=== PATIENT | female | born 1990 | race Caucasian/White ===

== ENCOUNTER → 2021-04-27 10:57 | Outpatient (BNVA) | payer SELFPAY | PROVIDERS: PCP Nurse Practitioner Family; Visit Provider Nurse Practitioner | DX: R39.9 Unspecified symptoms and signs involving the genitourinary system (principal); R52 Pain, unspecified | CPT/HCPCS: 81000; 87400 ==

== ENCOUNTER → 2021-11-03 16:00 | Outpatient (BNVA) | payer MEDICAID, SELFPAY | PROVIDERS: PCP Nurse Practitioner Family; Visit Provider Nurse Practitioner | DX: L98.9 Disorder of the skin and subcutaneous tissue, unspecified (principal) | CPT/HCPCS: 88304 ==

== ENCOUNTER → 2022-01-19 14:06 | Outpatient (BNVA) | payer BC, SELFPAY | PROVIDERS: PCP Nurse Practitioner Family; Visit Provider Nurse Practitioner | DX: Z92.89 Personal history of other medical treatment (principal); E66.9 Obesity, unspecified | CPT/HCPCS: 71046 ==

== ENCOUNTER → 2022-04-04 08:33 | Outpatient (BNVA) | payer SELFPAY | PROVIDERS: PCP Nurse Practitioner Family; Referring Provider Dermatology; Visit Provider Dermatology | DX: Z01.89 Encounter for other specified special examinations (principal) ==

== ENCOUNTER 2022-07-26 12:08 | Outpatient (CLI) | payer BC, MEDICAID, SELFPAY ==
[2022-07-26 13:31] LABS: Basophils # 0.1 10^3/uL (0.0-0.1); Basophils % 1.2 %; Eosinophils # 0.2 10^3/uL (0.0-0.8); Eosinophils % 3.7 %; Lymphocytes # 1.7 10^3/uL (0.8-4.8); Lymphocytes % 30.2 %; Mean Corpuscular HGB Conc 31.4 g/dL (30.0-36.0); Mean Corpuscular Hemoglobin 26.2 pg (28.0-34.0); Mean Corpuscular Volume 83.3 fl (81-99); Mean Platelet Volume 8.6 fL (7.4-10.4); Monocytes # 0.4 10^3/uL (0.2-0.9); Monocytes % 7.2 %; Neutrophils # 3.27 10^3/uL (1.8-7.7); Neutrophils % 57.7 %; Nucleated Red Blood Cells % 0 %; Platelet Count 477 10^3/cmm (130-400); Red Cell Distribution Width 12.4 % (12.1-15.1); White Blood Count 5.7 10^3/uL (4.0-10.0)
[2022-07-26 13:35] LABS: Thyroid Stimulating Hormone 1.21 uIU/mL (0.27-4.20)
[2022-08-01 12:00] LABS: Factor Viii, Activity 105 % normal (50-180); Partial Thromboplastin Time, A 26 sec (23-32); Von Willebrand Factor (Rcf) 72 % normal (42-200); Von Willebrand Factor Ag 109 % (50-217)
== END 2022-07-26 12:09 | disposition home or self-care (01) ==
PROVIDERS: PCP Nurse Practitioner Family; Visit Provider Nurse Practitioner Women's Health
DX: N93.9 Abnormal uterine and vaginal bleeding, unspecified (principal)
CPT/HCPCS: 36415; 84443; 85025; 85240; 85245; 85246

== ENCOUNTER → 2022-08-16 07:50 | Outpatient (BNVA) | payer BC, MEDICAID, SELFPAY | PROVIDERS: PCP Nurse Practitioner Family; Visit Provider Nurse Practitioner Women's Health | DX: N93.9 Abnormal uterine and vaginal bleeding, unspecified (principal); N83.02 Follicular cyst of left ovary; N83.01 Follicular cyst of right ovary | CPT/HCPCS: 76830 ==

== ENCOUNTER 2022-10-26 16:50 | Inpatient (IN) | payer BC, MEDICAID, SELFPAY ==
[2022-10-25 11:51] VITALS: BMI 31.1
[2022-10-26] VITALS (17 sets, daily range): BP systolic 109–133; BP diastolic 64–80; PULSE 77–104; RESP 15–18; TEMP 36.6–37; O2SAT 92–99
--- NOTE | 2022-10-26 08:20 | P.HP_ITS ---
Same Day Surgery H&P Indication for Procedure/HPI DATE OF PROCEDURE: October 26, 2022 CHIEF COMPLAINT/INDICATIONFOR SURGICAL PROCEDURE: chronic menometrorrhagia, abnormal uterine bleeding PREOP DIAGNOSIS: abnormal uterine bleeding, chronic menometrorrhagia PLANNED PROCEDURE: Operation Date: 10/26/22 12:00 Proposed Procedures p Total laparoscopic hysterectomy 59251, N93.9(Not Applicable) - Curt Vasquez MD 32 y.o. had vasectomy periods always irregular, heavy with clots and severe cramping now scheduled for hysterectomy Medications/Allergies* Home Medications Medication Instructions Recorded Confirmed Type cholecalciferol (vitamin D3) 50 50 mcg PO DAILY 09/01/20 10/25/22 History mcg (2,000 unit) capsule Allergies/Adverse Reactions Allergy/AdvReac Type Severity Reaction Status Date / Time No Known Allergies Allergy Verified 10/25/22 11:49 Pertinent History/Comorbid Conditions* Medical History (Updated 08/18/22 @ 13:51 by Doreen Mccracken APN, KINZA) Heart murmur High triglycerides History of positive PPD Hypertension MTHFR mutation (~2019) diagnosed by Dr. Neisha Rizzo--[place] No pertinent past medical history neghx:dm,thyroid,dvt/pe PCP: Awilda Beatty PCOS (polycystic ovarian syndrome) (~2014) Surgical History (Updated 07/26/22 @ 11:19 by Doreen Mccracken APN, KINZA) Hx of appendectomy (~06/2021) Hx of section (~2011) Hx of tonsillectomy Family History (Updated 07/26/22 @ 10:54 by Stephy Espinal) Diabetes Mother Heart disease Father Grandfather maternal Breast cancer Family/Other aunt/maternal Hypertension Mother Denies family history of Colon cancer Ovarian cancer Uterine cancer Thyroid disease Stroke Social History Substance/Drug Use: never Pertinent Exam Findings alert, oriented x 3, clear to auscultation bilaterally and regular rate & rhythm Pertinent Data pelvic sono 08-16-22 - 1.6 x 1.4 cm fibroid; normal uterus / ovaries Recommendations Surgery/Procedure today Other Plans: discussed extensively with patient options of OCs, DMPA, mirena IUD, endometrial ablation, hysterectomy, along with potential risks / side effects of each option patient wants hysterectomy refuses other less invasive options Procedures of total laparoscopic hysterectomy, possible open hysterectomy discussed with patient along with risks of infection, bleeding, injury to internal organs, anesthesia, blood transfusions patient understands and wants to proceed instructed patient to stop baby aspirin at least 5 days prior to procedure Coding Level of Care Code Acute Code for Chg Fwd Diagnoses Time Spent (min) 30
[2022-10-26] MEDS: sodium chloride 0.9% 1,000 ML 30 ML IV (10:48)
[2022-10-26] MEDS: lactated ringers 500 ML IV (10:56)
[2022-10-26 11:07] LABS: OR HCG Qualitative Urine Negative (Negative)
[2022-10-26 11:14] LABS: Basophils % 0.5 %; Eosinophils # 0.1 10^3/uL (0.0-0.8); Eosinophils % 2.3 %; Hematocrit 37.8 % (37.0-47.0); Hemoglobin 11.9 g/dL (11.5-15.3); Lymphocytes # 1.6 10^3/uL (0.8-4.8); Lymphocytes % 29.2 %; Mean Corpuscular HGB Conc 31.5 g/dL (30.0-36.0); Mean Corpuscular Hemoglobin 26.2 pg (28.0-34.0); Mean Corpuscular Volume 83.3 fl (81-99); Mean Platelet Volume 8.6 fL (7.4-10.4); Monocytes # 0.4 10^3/uL (0.2-0.9); Monocytes % 7.3 %; Neutrophils # 3.37 10^3/uL (1.8-7.7); Neutrophils % 60.5 %; Nucleated Red Blood Cells % 0 %; Platelet Count 427 10^3/cmm (130-400); Red Blood Count 4.54 10^6/uL (4.1-5.3); Red Cell Distribution Width 13.6 % (12.1-15.1); White Blood Count 5.6 10^3/uL (4.0-10.0)
[2022-10-26 11:30] LABS: Alanine Aminotransferase 9 U/L (0-33); Albumin Level 4.2 g/dL (3.5-5.2); Alkaline Phosphatase 58 U/L (35-105); Anion Gap 14.5 (5-19); Aspartate Amino Transferase 12 U/L (0-32); Blood Urea Nitrogen 8 mg/dL (6-20); Calcium 8.8 mg/dL (8.5-10.5); Carbon Dioxide 24 mmol/L (22-29); Chloride 105 mmol/L (98-107); Globulin 2.7 g/dL (1.3-4.6); Glucose 89 mg/dL (65-115); Osmolality Calculated 286 mOsm/kg (285-295); Potassium 4.5 mmol/L (3.5-5.1); Sodium 139 mmol/L (136-145); Total Bilirubin 0.2 mg/dL (0.15-1.2); Total Protein 6.9 g/dL (6.6-8.7)
--- NOTE | 2022-10-26 11:43 | W.PM.OPSUD ---
Surgery/Procedure H&P Update DATE OF PROCEDURE: October 26, 2022 DATE H&P PERFORMED: 10/26/22 H&P UPDATE INFORMATION: I have reviewed H&P completed within last 30 days, I have examined patient prior to procedure and No changes to prior documentation PREOP DIAGNOSIS: abnormal uterine bleeding PRIMARY INDICATION FOR PROCEDURE: abnormal uterine bleeding PLANNED PROCEDURE: Operation Date: 10/26/22 12:00 Proposed Procedures p Total laparoscopic hysterectomy 37550, N93.9(Not Applicable) - Curt Vasquez MD
[2022-10-26] MEDS: ceFAZolin 2,000 MG in sodium chloride 0.9% (plus) 50 ML 100 MG IV (12:27)
--- NOTE | 2022-10-26 12:43 | ANES.PREANE2 ---
Pre-Anesthetic Assessment Height/Weight: Height 1.57 m Weight 77.111 kg Temp Pulse Resp BP Pulse Ox O2 Del Method 97.8 F 77 16 133/80 99 Room Air 10/26/22 10:25 10/26/22 10:25 10/26/22 10:25 10/26/22 10:25 10/26/22 10:25 10/26/22 10:25 Preop Diagnosis: abnormal uterine bleeding Operation Date: 10/26/22 12:00 Proposed Procedures p Total laparoscopic hysterectomy 56752, N93.9(Not Applicable) - Curt Vasquez MD Familial anesthetic complications: none Was Beta Colby taken within 24 hours: N/A Was Clonidine taken within 24 hours: N/A Last intake: Intake Last Liquid Date 10/25/22 Last Liquid Time 19:00 Last Solid Date 10/25/22 Last Solid Time 19:00 Social No alcohol and No tobacco Exam alert, oriented x 3, clear to auscultation bilaterally and regular rate & rhythm Airway Submandibular: within normal limits Cervical ROM: within normal limits Mallampati: Class II Dentition: full CV/HEM Hypertension and Murmur Anesthetic Plan ASA status: 2 Anesthesia: General Medications/Allergies Home Medications Medication Instructions Recorded Confirmed Last Taken Type cholecalciferol (vitamin D3) 50 50 mcg PO DAILY 09/01/20 10/26/22 1 Week Ago History mcg (2,000 unit) capsule ~10/19/22 valsartan 40 mg tablet (Diovan) 40 mg PO DAILY #30 tabs 03/29/22 10/26/22 10/25/22 Rx Allergies Allergy/AdvReac Type Severity Reaction Status Date / Time No Known Allergies Allergy Verified 10/26/22 10:38 Current Medications Generic Name Dose Route Start Last Admin Trade Name Freq PRN Reason Stop Dose Admin Sodium Chloride 1,000 mls @ 30 mls/hr 10/26/22 10:30 10/26/22 10:48 Sodium Chloride 0.9% IV 10/27/22 10:29 30 mls/hr .Q24H HÉCTOR Administration PFSH Anesthesia Medical History (Updated 08/18/22 @ 13:51 by Doreen Mccracken APN, KINZA) Heart murmur High triglycerides History of positive PPD Hypertension MTHFR mutation (~2019) diagnosed by Dr. Neisha Rizzo-[place] No pertinent past medical history neghx:dm,thyroid,dvt/pe PCP: Awilda Beatty PCOS (polycystic ovarian syndrome) (~2014) Surgical History (Updated 07/26/22 @ 11:19 by Doreen Mccracken APN, WHNP) Hx of appendectomy (~06/2021) Hx of section (~2011) Hx of tonsillectomy Family History Mother Diabetes Hypertension Family/Other Breast cancer aunt/maternal Father Heart disease Grandfather Heart disease maternal Denies family history of Colon cancer Ovarian cancer Uterine cancer Thyroid disease Stroke Social History Substance/Drug Use: never Female Reproductive History Date of last menstrual period: 10/11/22 Data Anesthesia 10/26/22 10:53 10/26/22 10:53 Short CBC 10/26/22 Range/Units 10:53 WBC 5.6 (4.0-10.0) 10^3/uL Hgb 11.9 (11.5-15.3) g/dL Hct 37.8 (37.0-47.0) % MCV 83.3 (81-99) fl Plt Count 427 H (130-400) 10^3/cmm Neut % (Auto) 60.5 % Neut # (Auto) 3.37 (1.8-7.7) 10^3/uL BMP 10/26/22 10:53 Sodium 139 Potassium 4.5 Chloride 105 Carbon Dioxide 24 BUN 8 Creatinine 0.5 Glucose 89 Calcium 8.8 Liver Function 10/26/22 Range/Units 10:53 Total Bilirubin 0.2 (0.15-1.2) mg/dL AST 12 (0-32) U/L ALT 9 (0-33) U/L Alkaline Phosphatase 58 (35-105) U/L Albumin 4.2 (3.5-5.2) g/dL Blood Bank 10/26/22 10:53 Blood Type A Positive Rho(D) Type Positive Antibody Screen Negative Cardiac Studies: No Data to Display
[2022-10-26] MEDS: HYDROmorphone 1 mg/mL INJ 1 mL 0.5 MG IVP (17:55)
--- NOTE | 2022-10-26 18:28 | ANES.PROC ---
Anesthesia Procedures Procedure/Date: 10/26/22 Nerve Block ^: Nerve Block 1: Main Anesthesia: general anesthesia Time Out Performed: Yes Consent: requested by attending/covering physician, from patient, risks and benefits reviewed and patient agrees to proceed Nerve block location: other (Bilateral TAP blks) Anesthesia monitors applied: pulse oximetry, EKG, BP cuff and oxygen Nerve block position: supine Anesthetic Used: bupivacaine 0.5% (liposomal) Amount of anesthesia used (mL): 30 Ultrasound used to: recognize landmarks Nerve Stimulator Used?: No Interscalene/Femoral BLK: 4 stimuplex 21 g needle used for position and inplane approach Injection: neg aspiration of heme Patient Tolerated Procedure: well Complications: none
--- NOTE | 2022-10-26 18:29 | ANE.PACU2 ---
Inpatient post-anesthesia follow up: Airway intact: Yes Vital signs: Temperature 98.4 F Pulse Rate 96 Respiratory Rate 17 Blood Pressure 114/65 Pulse Oximetry 97 Oxygen Delivery Me thod Nasal Cannula Oxygen Flow Rate 3 Fraction of Inspir ed Oxygen Hydration adequate: Yes Nausea and vomiting: No Pain level: 3 Mental status: Baseline
[2022-10-26] MEDS: dextrose 5%-lactated ringers 1,000 ML 125 ML IV (18:47)
[2022-10-26] MEDS: ketorolac 30 mg/mL INJ IVP (18:47)
[2022-10-26] MEDS: docusate sodium 100 mg Capsule PO (20:58)
[2022-10-26] MEDS: HYDROcodone-acetaminophen 5-325 mg Tablet PO (20:59)
[2022-10-26] MEDS: simethicone 80 mg Chew PO (20:59)
[2022-10-26] MEDS: phenazopyridine 100 mg Tablet 200 MG PO (20:59)
[2022-10-27] MEDS: ketorolac 30 mg/mL INJ IVP ×3 (00:51→11:58)
[2022-10-27 01:20] VITALS: BP 126/65; PULSE 93; RESP 16; TEMP 36.8; O2SAT 98
--- NOTE | 2022-10-27 02:01 | PM.OP ---
Operative Report Date of procedure: October 26, 2022 Pre-op diagnosis: Preop Diagnosis abnormal uterine bleeding Post-op diagnosis: same Post-op findings: retro-flexed uterus Normal ovaries and tubes Adhesions of bladder to lower uterine segment Procedure done: attempted laparoscopic hysterectomy Total abdominal hysterectomy Repair of bladder laceration Specimens removed/disposition: uterus, cervix Surgeon: Curt Vasquez MD [employer] Hands: Wilbur Stout MD Anesthesia: General Estimated blood loss (mL): 250 Complications: 3 cm laceration of dome of bladder, repaired Condition: stable Disposition: PACU Brief History: 32 y.o. with menometrorrhagia Procedure: Informed consent obtained. The patient was taken to the operating room where general endotracheal anesthesia was given. She was placed in dorsolithotomy position with legs in the Tung stirrups. The patient was prepped and draped in the usual sterile fashion. A bivalve speculum was placed. A [employer] uterine manipulator was placed. Attention was then focused to the abdomen. A 2 mm incision was made in the left upper quadrant where a Veress needle was inserted gently into the abdominal cavity with an opening pressure of 5 mm Hg. The abdomen was then insufflated to an operating pressure of 20 mm Hg. The inferior aspect of the umbilicus was incised with a 5 mm incision. A direct visualization technique was utilized to place a 5 mm umbilical trocar. Proper placement was assured and the area underneath the umbilicus was inspected and no evidence of bleeding or visual injury was noted. Three additional ports were placed in the patient?s left and right lower quadrants for additional 5 mm trocars under direct visualization. The Enseal device was used throughout for vessel sealing. The uteroovarian vessels were doubly sealed and divided. The incision was carried to the round ligament. The round ligaments were divided along the midpoint along its course. On either side, the broad ligaments were developed and the anterior and posterior leaves were incised and divided. The uterine vessels were divided at the level of the internal cervical os. The bladder was bluntly retracted caudally. Cephalad traction was maintained during this part of the procedure to reduce possible injury to bilateral ureters. The pedicles on either side, after dividing the uterine vessels, were allowed to fall away behind the bulge of the vagina. The [employer] ring was used to identify the cervicovaginal junction and the junction was entered using the monopolar L hook. At this time, it was noted that there was a 3 cm laceration to the dome of the bladder. It was decided to proceed with open hysterectomy and repair of bladder laceration. The laparoscopic equipment were removed after the pneumoperitoneum was allowed to escape. A Pfannenstiel incision was made over an old scar. The incision was taken down to the fascia. The fascia was incised and extended laterally. The fascia was from the rectus muscles. The rectus muscles were in the midline. The peritoneum was entered bluntly. An Juan Francisco-O retractor was placed. The uterus and cervix was then removed using Heriberto scissors. The vaginal cuff was closed using a running stitch of O-Vicryl suture. The bladder laceration was then closed using a mucosal layer of 3-O chromic, followed by two imbricating layers of 3-O vicryl. The pelvis was copiously irrigated and found to be hemostatic. The Juan Francisco-O ring retractor was removed. All laps were removed and accounted for. The fascia was closed using a running suture of O-Vicryl. The subcutaneous tissue was inspected for hemostasis. The skin was closed with Insorb subcutaneous daron. Dermabond was applied. The laparoscopic incisions were reapproximated using 4-O monocryl. Cystoscopy was performed. The bladder repair appeared intact. All instruments were then removed. The Camilo catheter was replaced into the bladder, which will remain for decompression of the bladder for 10 days. The patient was then placed supine, awakened, and extubated. Post-operative condition: stable To PACU in good condition EBL: 250 cc Complications: laceration of bladder, repaired Sponge, instrument, and needle counts correct x two
[2022-10-27] MEDS: HYDROcodone-acetaminophen 5-325 mg Tablet PO ×3 (03:34→21:42)
[2022-10-27 05:17] LABS: Hematocrit 32.8 % (37.0-47.0); Hemoglobin 10.3 g/dL (11.5-15.3); Mean Corpuscular HGB Conc 31.4 g/dL (30.0-36.0); Mean Corpuscular Hemoglobin 26.5 pg (28.0-34.0); Mean Corpuscular Volume 84.3 fl (81-99); Mean Platelet Volume 8.3 fL (7.4-10.4); Platelet Count 360 10^3/cmm (130-400); Red Blood Count 3.89 10^6/uL (4.1-5.3); Red Cell Distribution Width 13.7 % (12.1-15.1); White Blood Count 10.1 10^3/uL (4.0-10.0)
[2022-10-27 05:20] VITALS: BP 116/61; PULSE 84; RESP 16; TEMP 36.8; O2SAT 96
[2022-10-27] MEDS: cholecalciferol (vitamin D3) 1,000 unit Tablet 2000 UNIT PO (08:54)
[2022-10-27] MEDS: docusate sodium 100 mg Capsule PO ×2 (08:54→21:01)
[2022-10-27] MEDS: phenazopyridine 100 mg Tablet 200 MG PO ×3 (08:54→21:01)
[2022-10-27 09:22] VITALS: BP 116/61
--- NOTE | 2022-10-27 09:49 | PM.OBGYPN ---
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: Interval history: POD #1 c/o chest and abdominal pain no cough / shortness of breath no appetite but tolerating PO Vitals/I&O/Wt Last Vital Signs Temp 98.0 F 10/28/22 12:03 Pulse 103 H 10/28/22 12:03 Resp 16 10/28/22 12:03 BP 113/74 10/28/22 12:03 Pulse Ox 98 10/28/22 04:30 O2 Del Method Room Air 10/28/22 04:30 O2 Flow Rate 2 10/26/22 19:20 Physical Exam Narrative: Awake, alert Afebrile, VS normal Lungs: clear Cor: RRR Abd: soft, nondistended Mild diffuse tenderness No rebound Wounds clean and dry Camilo in place, draining; urine output adequate Ext: normal Urinary Catheter Management: Camilo: Cath Placed During This Visit: yes Reason for Continuing Indwelling Catheter: Other Urinary Catheter Date of Insertion: 10/26/22 Urinary Catheter Time of Insertion: 13:10 Data 10/27/22 05:10 10/26/22 10:53 A&P Assessment and plan (1) Encounter for postoperative care: POD #1 Attemped laparoscopic hysterectomy Total abdominal hysterectomy Repair of bladder laceration Continue postop care Ambulate Pain medications Attestations Medical Necessity Statement*: patient POD #1 s/p attempted laparoscopic hysterectomy, total abdominal hysterectomy, repair of bladder laceration for postoperative management Coding Level of Care Code Acute Code for Chg Fwd Diagnoses Encounter for postoperative care Z48.89 Time Spent (min) 30
[2022-10-27 10:00] VITALS: BP 112/73; PULSE 105; RESP 15; TEMP 36.8; O2SAT 96
[2022-10-27] MEDS: simethicone 80 mg Chew PO ×2 (12:03→21:04)
[2022-10-27 16:03] VITALS: BP 110/71; PULSE 110; RESP 15; TEMP 36.9; O2SAT 94
[2022-10-27] MEDS: ibuprofen 800 mg tablet PO (21:01)
[2022-10-27] MEDS: nitrofurantoin SR (BID) 100 mg Capsule PO (21:02)
[2022-10-27 21:45] VITALS: BP 110/71; PULSE 116; RESP 15; TEMP 36.8; O2SAT 96
[2022-10-28] MEDS: HYDROcodone-acetaminophen 5-325 mg Tablet PO ×2 (04:24→12:56)
[2022-10-28] MEDS: ibuprofen 800 mg tablet PO ×2 (04:24→12:56)
[2022-10-28 04:30] VITALS: BP 103/67; PULSE 106; RESP 15; TEMP 36.8; O2SAT 98
[2022-10-28] MEDS: phenazopyridine 100 mg Tablet 200 MG PO (09:44)
[2022-10-28] MEDS: cholecalciferol (vitamin D3) 1,000 unit Tablet 2000 UNIT PO (09:44)
[2022-10-28] MEDS: nitrofurantoin SR (BID) 100 mg Capsule PO (09:45)
[2022-10-28] MEDS: docusate sodium 100 mg Capsule PO (09:45)
--- NOTE | 2022-10-28 11:50 | PM.OBGYPN ---
[employer]ATOR [employer]ER Subjective Subjective: Interval history: Feeling slightly better Less chest pain Has been ambulating Tolerating PO Vitals/I&O/Wt Last Vital Signs Temp 98.0 F 10/28/22 12:03 Pulse 103 H 10/28/22 12:03 Resp 16 10/28/22 12:03 BP 113/74 10/28/22 12:03 Pulse Ox 98 10/28/22 04:30 O2 Del Method Room Air 10/28/22 04:30 O2 Flow Rate 2 10/26/22 19:20 Physical Exam Narrative: Awake, alert Afebrile, VS normal Lungs: clear Cor: RRR Abd: soft, nondistended Mild diffuse tenderness No rebound Wound clean and dry Ext: normal Leo draining well UO normal Urinary Catheter Management: Leo: Cath Placed During This Visit: yes Reason for Continuing Indwelling Catheter: Other Urinary Catheter Date of Insertion: 10/26/22 Urinary Catheter Time of Insertion: 13:10 Data 10/27/22 05:10 10/26/22 10:53 A&P Assessment and plan (1) Encounter for postoperative care: POD #2 Attemped laparoscopic hysterectomy Total abdominal hysterectomy Repair of bladder laceration Doing slightly better as far as pain is concerned Has been eating and walking Plan discharge home today Plan continue leo drainage for 10 days Patient instructed on leo care Return to see me October 30, 2022 Attestations Medical Necessity Statement*: patient s/p abdominal hysterectomy, repair of bladder laceration for postoperative management plan discharge home today Coding Level of Care Code Acute Code for Chg Fwd Diagnoses Encounter for postoperative care Z48.89 Time Spent (min) 30
[2022-10-28 12:03] VITALS: BP 113/74; PULSE 103; RESP 16; TEMP 36.7
[2022-10-28] MEDS: simethicone 80 mg Chew PO (12:56)
--- NOTE | 2022-11-01 16:56 | PM.OBGYDC ---
Discharge Providers SUPERVISOR CONTINGENTS Date of Admission: 10/26/22 16:50 Date of Discharge: 10/28/22 Attending Provider at Admission: Curt Vasquez MD Attending Provider at Discharge: Curt Vasquez MD Primary SUPERVISOR CONTINGENTS: Curt Vasquez MD Primary Care Provider: Awilda Beatty APN Diagnoses at Discharge Discharge Diagnosis (1) Encounter for postoperative care: Details from hospital stay: patient s/p attemped laparoscopic hysterectomy; total abdominal hysterectomy; repair of bladder laceration in hospital for postoperative care and pain management was afebrile was ambulating and eating well on day of discharge Status: Acute Reason for Visit Reason for Visit: N93.9 Physical Exam Const: COMMON NORMALS: no acute distress, patient oriented x3 and alert Resp: COMMON NORMALS: normal respiratory effort, No use of accessory muscles and clear to auscultation bilaterally AUSCULTATION: clear to auscultation bilaterally Cardio: COMMON NORMALS: regular rate and regular rhythm RATE: regular rate RHYTHM: regular rhythm GI: COMMON NORMALS: Normal to inspection, nondistended, normoactive bowel sounds present and Soft to palpation PALPATION: Yes Soft to palpation OTHER: mild diffuse tenderness. no rebound wounds clean and dry Extremity: NARRATIVE EXTREMITY EXAM: normal Neuro: COMMON NORMALS: patient oriented x3 SENSORIUM/ORIENTATION: Yes alert Urinary Catheter Management: Camilo: Cath Placed During This Visit: yes Reason for Continuing Indwelling Catheter: Other Urinary Catheter Date of Insertion: 10/26/22 Urinary Catheter Time of Insertion: 13:10 History History History 1 Term 1 0 Miscarriages/Ectopic 0 Living Children 1 Discharge Data Studies Completed and Pending Completed Studies During Hospitalization Category Date Time Status Pathology: Surgical [PTH] Routine Pth 10/26/22 17:10 Completed Laboratory Results WBC 10.1 10^3/uL (4.0-10.0) H 10/27/22 05:10 RBC 3.89 10^6/uL (4.1-5.3) L 10/27/22 05:10 Hgb 10.3 g/dL (11.5-15.3) L 10/27/22 05:10 Hct 32.8 % (37.0-47.0) L 10/27/22 05:10 MCV 84.3 fl (81-99) 10/27/22 05:10 MCH 26.5 pg (28.0-34.0) L 10/27/22 05:10 MCHC 31.4 g/dL (30.0-36.0) 10/27/22 05:10 RDW 13.7 % (12.1-15.1) 10/27/22 05:10 Plt Count 360 10^3/cmm (130-400) 10/27/22 05:10 MPV 8.3 fL (7.4-10.4) 10/27/22 05:10 Neut % (Auto) 60.5 % 10/26/22 10:53 Lymph % (Auto) 29.2 % 10/26/22 10:53 [place] % (Auto) 7.3 % 10/26/22 10:53 Eos % (Auto) 2.3 % 10/26/22 10:53 Baso % (Auto) 0.5 % 10/26/22 10:53 Neut # (Auto) 3.37 10^3/uL (1.8-7.7) 10/26/22 10:53 Lymph # (Auto) 1.6 10^3/uL (0.8-4.8) 10/26/22 10:53 [place] # (Auto) 0.4 10^3/uL (0.2-0.9) 10/26/22 10:53 Eos # (Auto) 0.1 10^3/uL (0.0-0.8) 10/26/22 10:53 Baso # (Auto) 0.0 10^3/uL (0.0-0.1) 10/26/22 10:53 Nucleated RBC % (auto) 0 % 10/26/22 10:53 Nucleated RBCs # 0.0 /100WBC 10/26/22 10:53 Sodium 139 mmol/L (136-145) 10/26/22 10:53 Potassium 4.5 mmol/L (3.5-5.1) 10/26/22 10:53 Chloride 105 mmol/L (98-107) 10/26/22 10:53 Carbon Dioxide 24 mmol/L (22-29) 10/26/22 10:53 Anion Gap 14.5 (5-19) 10/26/22 10:53 BUN 8 mg/dL (6-20) 10/26/22 10:53 Creatinine 0.5 mg/dL (0.5-0.9) 10/26/22 10:53 GFR Calculation 143.0 mL/min (90-130) H 10/26/22 10:53 Glucose 89 mg/dL (65-115) 10/26/22 10:53 Calculated Osmolality 286 mOsm/kg (285-295) 10/26/22 10:53 Calcium 8.8 mg/dL (8.5-10.5) 10/26/22 10:53 Total Bilirubin 0.2 mg/dL (0.15-1.2) 10/26/22 10:53 AST 12 U/L (0-32) 10/26/22 10:53 ALT 9 U/L (0-33) 10/26/22 10:53 Alkaline Phosphatase 58 U/L (35-105) 10/26/22 10:53 Total Protein 6.9 g/dL (6.6-8.7) 10/26/22 10:53 Albumin 4.2 g/dL (3.5-5.2) 10/26/22 10:53 Globulin 2.7 g/dL (1.3-4.6) 10/26/22 10:53 Urine HCG, Qual Negative (Negative) 10/26/22 10:22 Blood Type A Positive 10/26/22 10:53 Rho(D) Type Positive 10/26/22 10:53 Antibody Screen Negative 10/26/22 10:53 Procedures Performed Total abdominal hysterectomy repair of bladder laceration Vitals Last Vital Signs Temp 98.0 F 10/28/22 12:03 Pulse 103 H 10/28/22 12:03 Resp 16 10/28/22 12:03 BP 113/74 10/28/22 12:03 Pulse Ox 98 10/28/22 04:30 O2 Del Method Room Air 10/28/22 04:30 O2 Flow Rate 2 10/26/22 19:20 Discharge Plan Discharge Patient Disposition: Home Condition: Stable Prescriptions: New Percocet 10-325 mg tablet 1 tab PO Q8H PRN (Reason: pain) Qty: 30 0RF Macrobid 100 mg capsule 100 mg PO BID 10 Days Qty: 20 0RF Rx Instructions: must administer with a meal/food Pyridium 100 mg tablet 100 mg PO Q8H 10 Days Qty: 30 0RF Continued cholecalciferol (vitamin D3) 50 mcg (2,000 unit) capsule 50 mcg PO DAILY valsartan [Diovan] 40 mg tablet 40 mg PO DAILY Qty: 30 2RF Rx Instructions: for blood pressure Discontinued aspirin 81 mg tablet,delayed release (DR/EC) 81 mg PO DAILY Pirmella 1-35 mg-mcg tablet 2 tab PO DAILY Qty: 84 2RF Rx Instructions: 2 tabs daily for 5 days, then 1 tab daily for remainder of pack. norethindrone acetate 5 mg tablet 5 mg PO DAILY Qty: 90 0RF Discharge Orders: Discharge Order (Routine); Ordered 10/28/22 Ordered By: Curt Vasquez Referrals: Curt Vasquez MD [Physician] - 11/01/22 10:45 am Discharge Diet: Usual diet Discharge Activity: Increase activity as tolerated Patient Instructions: Hysterectomy (DC), OB Abdominal Surgery - [facility], OB Discharge Report, OB Food/Drug Interaction Guide, Opioid Safety Activity Restrictions/Additional Instructions: call Dr. Vasquez at cell: [phone] if questions or problems Discharge Attestations SUPERVISOR CONTINGENTS Time Spent in Discharge Care*: less than 30 min Coding Level of Care Code Acute Code for Chg Fwd Diagnoses Encounter for postoperative care Z48.89 Time Spent (min) 20
== END 2022-10-28 13:25 | disposition home or self-care (01) | DRG 742 ==
LOC: OBGYN 10-27 08:03
PROVIDERS: Anesthesiology; Admitting Provider Obstetrics & Gynecology; PCP Nurse Practitioner Family; Visit Provider Obstetrics & Gynecology
PROC: 0UT94ZZ Resection of Uterus, Percutaneous Endoscopic Approach (ICD-10-PCS; principal; 2022-10-26 12:00)
PROC: 0UT90ZZ Resection of Uterus, Open Approach (ICD-10-PCS; CPT 58150; 2022-10-26 12:00)
DX: N92.1 Excessive and frequent menstruation with irregular cycle (principal); N99.71 Accidental puncture and laceration of a genitourinary system organ or structure during a genitourinary system procedure; R01.1 Cardiac murmur, unspecified; I10 Essential (primary) hypertension; N85.4 Malposition of uterus; N73.6 Female pelvic peritoneal adhesions (postinfective); Y83.8 Other surgical procedures as the cause of abnormal reaction of the patient, or of later complication, without mention of misadventure at the time of the procedure; Y92.234 Operating room of hospital as the place of occurrence of the external cause
CPT/HCPCS: 36415; 80053; 84703; 85025; 85027; 86850; 86900; 88307; 96374; 96376; J0690; J1100; J1170; J1885; J2250; J2405; J2704; J3010; J3490; J7030; J7120; J7121; P9045; Q9968

== ENCOUNTER 2022-10-28 20:25 | Outpatient (CLI) | payer BC, MEDICAID, SELFPAY ==
[2022-10-28] VITALS (37 sets, daily range): BP systolic 117; BP diastolic 68; PULSE 93–120; RESP 15–18; TEMP 36.6; O2SAT 86–97
== END 2022-10-28 22:43 | disposition home or self-care (01) ==
LOC: OPOB 20:26 → OBGYN 20:26
PROVIDERS: PCP Nurse Practitioner Family; Visit Provider Obstetrics & Gynecology
DX: Z46.6 Encounter for fitting and adjustment of urinary device (principal)
CPT/HCPCS: 51702

== ENCOUNTER → 2022-11-21 15:25 | Outpatient (BNVA) | payer BC, MEDICAID, SELFPAY | PROVIDERS: PCP Nurse Practitioner Family; Visit Provider Nurse Practitioner | DX: J98.19 Other pulmonary collapse (principal) | CPT/HCPCS: 71046 ==

== ENCOUNTER 2023-04-05 15:23 | Outpatient (CLI) | payer BC, MEDICAID, SELFPAY ==
--- NOTE | 2023-04-05 15:27 | XR_ITS ---
WS: [id number] Exam: XR [id number] Date/Time of Exam: 04/05/2023 3:30 PM Reason For Exam: STATUS POST BLADDER REPAIR No bowel obstruction or free air identified. No sign of organ enlargement. Nonspecific opaque density superimposes the lower pole the LEFT kidney. Normal bony structures. IMPRESSION: 1. No acute abdominal finding.
--- NOTE | 2023-04-05 15:27 | USR_ITS ---
PROCEDURE INFORMATION: Exam: US Retroperitoneal; Complete; Kidneys and Bladder Exam date and time: 04/05/2023 3:34 PM Age: 32 years old Clinical indication: Screening exam; Post surgical status; Bladder repair; Prior surgery; Surgery date: 1-6 months; Additional info: Status post bladder repair, PT having xray too TECHNIQUE: Imaging protocol: Real-time ultrasound of the retroperitoneum with image documentation. Complete exam focused on the kidneys and bladder. COMPARISON: US transvaginal [id number] 08/16/2022 7:54 AM FINDINGS: Right kidney: No shadowing stones. No hydronephrosis. Left kidney: 1.4 cm inferior pole calculus. No hydronephrosis. Urinary bladder: Bladder incompletely distended with 20 mL prevoid volume.. US/US renal BI* [id number] IMPRESSION: 1.4 cm left renal calculus.
== END 2023-04-05 15:24 | disposition home or self-care (01) ==
LOC: RAD 15:24
PROVIDERS: PCP Nurse Practitioner Family; Visit Provider Urology
DX: Z98.890 Other specified postprocedural states (principal); N20.0 Calculus of kidney
CPT/HCPCS: 74018; 76770

== ENCOUNTER 2023-05-07 11:47 | Outpatient (CLI) | payer BC, MEDICAID, SELFPAY ==
--- NOTE | 2023-05-07 11:52 | CT_ITS ---
WS: [id number] CT ABDOMEN PELVIS TECHNIQUE: Noncontrast CT of the abdomen and pelvis with coronal and sagittal reformatted images. CLINICAL INFORMATION: Calculus of left kidney COMPARISON: Ultrasound renal 04/05/2023 DLP: 463.[address] scans at [facility] use at least one of these dose optimization techniques: automated e xposure control; mA and/or kV adjustment per patient size (includes targeted exams where dose is matc hed to clinical indication); or iterative reconstruction. FINDINGS: Prior hysterectomy. Prior appendectomy. Lung bases are well aerated. Adrenal glands are normal. No hy dronephrosis in either kidney. No obstructing renal or ureteral calculi. Nonobstructing calculus lowe r pole LEFT kidney measuring 11 mm. Noncontrast liver and spleen are normal. Tiny esophageal hiatal hernia. Noncontrast pancreas is jayesh l. Normal noncontrast gallbladder. Normal caliber noncontrast aorta. Small amount of free fluid in th e cul-de-sac. A few sigmoid diverticuli. No evidence of acute diverticulitis. Prior appendectomy. IMPRESSION: 1. No hydronephrosis in either kidney. 2. No obstructing renal or ureteral calculi. 3. Nonobstructing LEFT lower pole calculus measuring 11 mm. 4. Prior hysterectomy and appendectomy. 5. Small amount of free fluid in the cul-de-sac. 6. A few sigmoid diverticuli.
== END 2023-05-07 11:48 | disposition home or self-care (01) ==
LOC: RAD 11:47
PROVIDERS: PCP Nurse Practitioner Family; Visit Provider Urology
DX: N20.0 Calculus of kidney (principal); Z98.890 Other specified postprocedural states; K57.30 Diverticulosis of large intestine without perforation or abscess without bleeding
CPT/HCPCS: 74176

== ENCOUNTER → 2024-01-11 08:44 | Outpatient (BNVA) | payer BC, MEDICAID, SELFPAY | PROVIDERS: PCP Nurse Practitioner Family; Visit Provider Nurse Practitioner Family | DX: R30.0 Dysuria (principal) | CPT/HCPCS: 81000 ==

== ENCOUNTER 2024-01-22 08:26 | Outpatient (CLI) | payer BC, MEDICAID, SELFPAY ==
--- NOTE | 2024-01-22 08:36 | XR_ITS ---
WS: [id number] Exam: XR KUB [id number] Date/Time of Exam: 01/22/2024 8:43 AM Reason For Exam: S/P BLADDER REPAIR/ADNEXAL CYST/NEPHROSTOMY STATUS Comparison 04/05/2023. No bowel obstruction or free air. No sign of organ enlargement. 12 mm opaque amorphous calcification superimposes lower pole the LEFT kidney unchanged. Osseous structures are unremarkable. XR/XR KUB [id number] IMPRESSION: 1. No acute finding. 2. 12 mm ovoid amorphous calcification overlying the lower pole of the LEFT kid yonas unchanged since prior study. This may be a renal calculus.
== END 2024-01-22 08:27 | disposition home or self-care (01) ==
LOC: RAD 08:31
PROVIDERS: PCP Nurse Practitioner Family; Visit Provider Urology
DX: N20.0 Calculus of kidney (principal); Z98.890 Other specified postprocedural states; N94.9 Unspecified condition associated with female genital organs and menstrual cycle; Z93.6 Other artificial openings of urinary tract status
CPT/HCPCS: 74018

== ENCOUNTER → 2024-05-27 14:27 | Outpatient (BNVA) | payer SELFPAY | PROVIDERS: PCP Nurse Practitioner Family; Visit Provider Nurse Practitioner | DX: N39.0 Urinary tract infection, site not specified (principal); R39.11 Hesitancy of micturition | CPT/HCPCS: 81003; 87086 ==